=== PATIENT | male | born 1965 | race Caucasian/White ===

== ENCOUNTER → 2021-01-11 01:47 | Outpatient (CLI) | payer BC, SELFPAY ==
--- NOTE | 2021-01-11 08:00 | DI.RAD_ITS ---
Exam(s) XR KNEE LT 3V AP,LAT,NAVDEEP EXAM: XR KNEE LT 3V AP,LAT,NAVDEEP CLINICAL HISTORY: left knee pain, M25.562. TECHNIQUE: 2D digital imaging was performed. COMPARISON: CR XR KNEE RT 3V AP,LAT,NAVDEEP from 01/11/2021 FINDINGS: BONES: no acute fracture is present. no bony destructive lesion is seen. there is a smoothly margina diana osteochondromas seen at the posteromedial metaphyseal region of the distal femur. JOINTS: The knee is normally aligned. No joint effusion is seen. there is minimal spurring at the pa tellofemoral joint SOFT TISSUE: Normal. IMPRESSION: NO ACUTE ABNORMALITY. DATA REPOSITORY: RADIATION DOSE DELIVERED:
--- NOTE | 2021-01-11 08:00 | DI.RAD_ITS ---
Exam(s) XR KNEE RT 3V AP,LAT,NAVDEEP EXAM: XR KNEE RT 3V AP,LAT,NAVDEEP CLINICAL HISTORY: rt knee pain, M25.561. TECHNIQUE: 2D digital imaging was performed. COMPARISON: No exams were available for comparison FINDINGS: BONES: No acute fracture is present. No bony destructive lesion is seen. small osteochondroma postero medial distal femoral metaphysis. JOINTS: The knee is normally aligned. No joint effusion is seen. minimal spurring at the articular as pect of the patella. enthesophytes at the patella. SOFT TISSUE: Normal. IMPRESSION: DISTAL FEMORAL OSTEOCHONDROMA. MILD DEGENERATIVE CHANGES.. DATA REPOSITORY: RADIATION DOSE DELIVERED:
== END ==
PROVIDERS: PCP Nurse Practitioner Family; Visit Provider Nurse Practitioner Family
DX: M25.561 Pain in right knee (principal); M25.562 Pain in left knee
CPT/HCPCS: 73562

== ENCOUNTER 2021-02-08 01:11 | Outpatient (CLI) | payer BC, SELFPAY ==
[2021-02-08 13:30] LABS: Hemoglobin A1C 6.1 % (<5.7)
[2021-02-08 14:03] LABS: ALT 31 U/L (16-63); AST 14 U/L (15-37); Albumin 3.9 g/dL (3.4-5.0); Alkaline Phosphatase 67 U/L (46-116); Anion Gap 9.3 mmol/L (3-11); BUN 14 mg/dL (7-18); Bilirubin, Total 0.4 mg/dL (0.2-1.0); CO2 27.7 mmol/L (21.0-32.0); Calcium 9.3 mg/dL (8.5-10.1); Chloride 104 mmol/L (98-107); Glucose 95 mg/dL (74-106); Potassium 4.9 mmol/L (3.5-5.1); Sodium 141 mmol/L (136-145); Total Protein 7.7 g/dL (6.4-8.2)
[2021-02-08 19:30] LABS: Calculated LDL 109 mg/dL (<100); Cholesterol 172 mg/dL (<200); HDL Cholesterol 47 mg/dL (40-60); Triglyceride 82 mg/dL (<150)
== END 2021-02-08 01:12 | disposition home or self-care (01) ==
LOC: LOS 01:11
PROVIDERS: PCP Nurse Practitioner Family; Visit Provider Nurse Practitioner Family
DX: Z00.00 Encounter for general adult medical examination without abnormal findings (principal); Z13.1 Encounter for screening for diabetes mellitus; Z13.220 Encounter for screening for lipoid disorders
CPT/HCPCS: 36415; 80053; 80061; 83036

== ENCOUNTER 2021-03-22 10:42 | Outpatient (CLI) | payer BC, SELFPAY ==
--- NOTE | 2021-03-22 10:15 | DI.RAD_ITS ---
Exam(s) XR HIP LT COMPLETE AP PELVIS EXAM: XR HIP LT COMPLETE AP PELVIS CLINICAL HISTORY: hip pain. TECHNIQUE: 2D digital imaging was performed. COMPARISON: No exams were available for comparison FINDINGS: BONES: No acute fracture is present. No bony destructive lesion is seen. JOINTS: No dislocation present. SOFT TISSUE: Normal. IMPRESSION: Unremarkable radiographs of the left hip. Unremarkable radiographs of the pelvis DATA REPOSITORY: RADIATION DOSE DELIVERED:
== END 2021-03-22 10:43 | disposition home or self-care (01) ==
LOC: DIORS 10:42
PROVIDERS: PCP Nurse Practitioner Family; Visit Provider Physician Assistant Surgical
DX: M25.552 Pain in left hip (principal)
CPT/HCPCS: 73502

== ENCOUNTER 2021-05-10 12:08 | Outpatient (CLI) | payer BC, SELFPAY ==
--- NOTE | 2021-05-10 11:30 | DI.RAD_ITS ---
Exam(s) XR TIB/FIB LT EXAM: XR TIB/FIB LT CLINICAL HISTORY: L leg pain TECHNIQUE: COMPARISON: No exams were available for comparison FINDINGS: Three views were obtained. No bony or soft tissue abnormality seen. IMPRESSION: RADIATION DOSE DELIVERED: Total DLP
== END 2021-05-10 12:09 | disposition home or self-care (01) ==
LOC: DIORS 12:08
PROVIDERS: PCP Nurse Practitioner Family; Referring Provider Nurse Practitioner Family; Visit Provider Physician Assistant
DX: M79.605 Pain in left leg (principal)
CPT/HCPCS: 73590

== ENCOUNTER → 2021-05-31 00:26 | Outpatient (CLI) | payer BC, SELFPAY ==
--- NOTE | 2021-05-31 06:45 | DI.MRI_ITS ---
Exam(s) MR LOWER JOINT LT WO EXAM: MR LOWER JOINT LT WO CLINICAL HISTORY: LT KNEE PAIN, INTERNAL DERANGEMENT,M23.92 TECHNIQUE: Multiplanar multisequence MRI was performed.. COMPARISON: No exams were available for comparison FINDINGS: MR examination of the knee was performed according to the usual protocol. There is a small knee joint effusion. No significant bony signal abnormality seen. Medial tibiofemoral joint: The articular cartilage of the femur and tibia appears well maintained. T he meniscus and attachments appear intact. The medial collateral ligament appears intact. 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 Lateral tibiofemoral joint: The articular cartilage of the femur and tibia appears well maintained. The meniscus and attachments appear intact. The lateral collateral ligament complex and posterolater al corner structures appear intact. Patellofemoral joint and extensor mechanism: The articular cartilage of the patella is slightly thinn ed. There is a focal defect of the central portion of the articular cartilage at median patellar rid ge with some localized roughening of the cartilage surface and penetrating defect measuring a couple millimeters in diameter which appears to extend to the subchondral bone period minimal patellar troch lear cartilage roughening appears to be present period. The superior and inferior patellar fat pads appear normal with no signal abnormality. The quadriceps tendon and patellar tendon appear intact with no evidence of a tear or significant jayesh ma. The medial and lateral retinacula appear intact. Cruciate ligaments: The posterior cruciate ligament has normal appearance. Anterior cruciate ligamen t shows increased signal which may reflect degeneration or a strain. There is no significant tear of the ACL identified. Tibiofibular joint: No specific abnormality involving the tibiofibular joint. IMPRESSION: Central patellar chondral defect as described above. Abnormal single of anterior cruciate ligament which may represent degeneration or strain without evid ence of a discrete tear. DATA REPOSITORY:
== END ==
PROVIDERS: PCP Nurse Practitioner Family; Visit Provider Student in an Organized Health Care Education/Training Program
DX: M23.8X2 Other internal derangements of left knee (principal)
CPT/HCPCS: 73721